=== PATIENT | male | born 1930 | race Caucasian/White ===

== ENCOUNTER 2020-08-26 09:09 | Emergency (ER) | payer MEDICARE ==
[~2020-08-26] VITALS: Ht 180 cm; Wt 82.0 kg
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
[2020-08-26 09:40] LABS: BASOPHILS % (AUTO) 1 % (0-10); EOSINOPHILS # (AUTO) 0.1 10^3/uL (0.0-0.3); EOSINOPHILS % (AUTO) 1 % (0-10); HEMATOCRIT 41 % (40-54); HEMOGLOBIN 13.6 g/dL (13.3-17.7); LYMPHOCYTES # (AUTO) 0.8 10^3/uL (1.0-4.0); LYMPHOCYTES % (AUTO) 14 % (12-44); MEAN CORPUSCULAR HEMOGLOBIN 34 pg (25-34); MEAN CORPUSCULAR HGB CONC 33 g/dL (32-36); MEAN CORPUSCULAR VOLUME 103 fL (80-99); MEAN PLATELET VOLUME 10.3 fL (9.0-12.2); MONOCYTES # (AUTO) 0.7 10^3/uL (0.0-1.0); MONOCYTES % (AUTO) 13 % (0-12); NEUTROPHILS # (AUTO) 4.1 10^3/uL (1.8-7.8); NEUTROPHILS % (AUTO) 71 % (42-75); PLATELET COUNT 142 10^3/uL (130-400); WHITE BLOOD COUNT 5.7 10^3/uL (4.3-11.0)
--- NOTE | 2020-08-26 09:55 | Diagnostic Imaging Report ---
INDICATION: Leg swelling FINDINGS: The heart size is within normal limits and there is no overt failure type pattern. No effusion or pneumothorax. No free air beneath the diaphragms. The pacemaker device unremarkable. There is left perihilar pulmonary density which may be early infiltrate or atelectasis but does warrant radiographic follow-up to exclude this presence of a small mass. IMPRESSION: 1. Left perihilar pulmonary density indeterminate atelectasis, infiltrate versus small mass; follow-up radiograph within 2 weeks' time recommended. 2. No radiographic features of a brayan failure pattern. Dictated by: Dictated on workstation # [id number]
[2020-08-26 09:59] LABS: ALBUMIN 3.6 GM/DL (3.2-4.5); BILIRUBIN,TOTAL 1.3 MG/DL (0.1-1.0); CALCIUM 8.5 MG/DL (8.5-10.1); CREATININE SERUM 1.29 MG/DL (0.60-1.30); TOTAL PROTEIN 5.7 GM/DL (6.4-8.2)
[2020-08-26 10:01] LABS: INR 1.7 (0.8-1.4); PROTHROMBIN TIME PATIENT 20.4 SEC (12.2-14.7)
[2020-08-26] MEDS ORDERED: CEFD300C3 PO (11:29)
[2020-08-26] MEDS ORDERED: AZIT250T12 PO (11:29)
[2020-08-26] MEDS ORDERED: CEFDINIR 300 MG (OMNICEF) CAP PO ONE (11:45)
[2020-08-26] MEDS ORDERED: AZITHROMYCIN 250 MG TAB (ZITHROMAX) PO ONE (11:45)
[2020-08-26 12:10] VITALS: BP 134/80
--- NOTE | 2020-08-26 12:10 | NUR ---
PT FRIENDS COMING BACK FROM [place] TO PICK PT UP. PT TO WAIT IN [facility] FOR THEM
== END 2020-08-26 12:10 | disposition home or self-care (01) ==
LOC: ER 09:14
DX: R60.9 Edema, unspecified (principal); R91.1 Solitary pulmonary nodule; R41.0 Disorientation, unspecified
CPT/HCPCS: 36415; 71045; 80053; 83880; 85025; 85610; 85730; 86141